=== PATIENT | male | born 1975 | race Two or more races ===

== ENCOUNTER 2020-06-12 04:29 | Emergency (ER) | payer OTHER ==
[~2020-06-12] VITALS: Ht 180.3 cm; Wt 109.0 kg
[2020-06-12 05:51] VITALS: BP 142/92
== END 2020-06-12 06:26 | disposition home or self-care (01) ==
LOC: ED 06:15
DX: T18.128A Food in esophagus causing other injury, initial encounter (principal); F17.200 Nicotine dependence, unspecified, uncomplicated; X58.XXXA Exposure to other specified factors, initial encounter; Y93.89 Activity, other specified; Y92.89 Other specified places as the place of occurrence of the external cause; Y99.8 Other external cause status
CPT/HCPCS: 99281